=== PATIENT | female | born 1975 | race Caucasian/White ===

== ENCOUNTER 2021-09-19 06:01 | Day surgery (SDC) | payer SELFPAY ==
[2021-09-12 13:06] VITALS: BMI 33.8
[2021-09-19] MEDS ORDERED: MIDAZOLAM HCL 2 MG/2 ML SINGLE DOSE VIAL ONE ×2 (07:24→07:59)
[2021-09-19] MEDS ORDERED: ROCURONIUM BROMIDE 50 MG/5 ML SYRINGE ONE ×3 (07:24→11:00)
[2021-09-19] MEDS ORDERED: fentaNYL CITRATE 250 MCG/5 ML VIAL ONE (07:24)
[2021-09-19] MEDS ORDERED: PROPOFOL 20 ML ONE ×2 (07:24→08:00)
[2021-09-19] MEDS ORDERED: BUPIVACAINE HCL/PF 0.25% (2.5MG/ML) 10 ML VIAL ONE (07:24)
[2021-09-19] MEDS ORDERED: EPINEPHrine 1:1,000 1,000 MCG/ML ML ONE (07:25)
[2021-09-19] MEDS ORDERED: DEXMEDETOMIDINE HCL 200 MCG/2 ML IVPB ONE ×2 (07:30→07:31)
[2021-09-19] MEDS ORDERED: BUPIVACAINE LIPOSOME/PF (EXPAREL) 266 MG/20 ML VIAL ONE (07:37)
[2021-09-19] MEDS ORDERED: HEPARIN NA (PORCINE) 5,000 UNITS/ML 1ML VIAL ONE (07:59)
[2021-09-19] MEDS ORDERED: KETAMINE HCL 200 MG/20 ML VIAL ONE (08:02)
[2021-09-19] MEDS ORDERED: ONDANSETRON 4 MG/2 ML VIAL ONE (08:13)
[2021-09-19] MEDS ORDERED: DEXAMETHASONE SOD PHOSPHATE 4 MG/1 ML VIAL ONE (08:13)
[2021-09-19] MEDS ORDERED: BUPIVACAINE HCL/PF 0.25% (2.5MG/ML) 10 ML VIAL STI ONE (08:36)
[2021-09-19] MEDS ORDERED: BUPIVACAINE LIPOSOME/PF (EXPAREL) 266 MG/20 ML VIAL NR ONE (08:36)
[2021-09-19] MEDS ORDERED: HYDROmorphone HCL/PF 1 MG/ML VIAL ONE (09:21)
[2021-09-19] MEDS ORDERED: NEOSTIGMINE METHYLSULFATE 0.5 MG/1 ML - 10 ML MDV ONE (11:25)
[2021-09-19] MEDS ORDERED: BACITRACIN 15 GM TUBE TOPICAL OINTMENT ONE (12:06)
[2021-09-19] MEDS ORDERED: ONDANSETRON 4 MG/2 ML VIAL IVPB PRN (12:27)
[2021-09-19] MEDS ORDERED: morphine SULFATE 4 MG/ML VIAL IVPUSH PRN (12:27)
[2021-09-19] MEDS ORDERED: PROMETHAZINE HCL 25 MG/1 ML VIAL IVPUSH PRN (12:33)
[2021-09-19] MEDS ORDERED: ACETAMINOPHEN 1000 MG/100 ML BAG IVPB PRN (12:33)
[2021-09-19] MEDS ORDERED: ceFAZolin SODIUM 1 GM VIAL ONE (17:23)
[2021-09-19] MEDS ORDERED: DEXTROSE 5%-WATER - 50 ML IVPB ONE (17:24)
[2021-09-19] MEDS: CEFAZOLIN 1 GM in DEXTROSE 5%-WATER - 50 ML IVPB SCH (17:33)
[2021-09-19] MEDS: oxyCODONE HCL 5 MG TABLET PO PRN ×2 (17:33→22:32)
[2021-09-19] MEDS: LACTATED RINGERS SOLUTION 1,000 ML IV SCH (17:34)
[2021-09-19] MEDS: PANTOPRAZOLE 40 MG TABLET PO SCH (21:36)
[2021-09-20] MEDS: CEFAZOLIN 1 GM in DEXTROSE 5%-WATER - 50 ML IVPB SCH ×2 (02:33→09:17)
[2021-09-20] MEDS ORDERED: ceFAZolin SODIUM 1 GM VIAL ONE ×2 (03:23→09:08)
[2021-09-20] MEDS ORDERED: DEXTROSE 5%-WATER - 50 ML IVPB ONE ×2 (03:23→09:08)
[2021-09-20] MEDS: oxyCODONE HCL 5 MG TABLET PO PRN ×4 (03:44→15:42)
[2021-09-20] MEDS ORDERED: HEPARIN NA (PORCINE) 5,000 UNITS/ML 1ML VIAL SQ SCH (08:00)
[2021-09-20] MEDS: PANTOPRAZOLE 40 MG TABLET PO SCH (09:17)
[2021-09-20] MEDS: LACTATED RINGERS SOLUTION 1,000 ML IV SCH (13:30)
[2021-09-20 14:02] VITALS: BP 108/77; PULSE 83; TEMP 98.1
== END 2021-09-20 17:53 | disposition home or self-care (01) ==
LOC: FASUSAT 06:01 → FM/S 13:41 → FASUSAT 09-20 17:53
PROVIDERS: ATTEND Plastic Surgery
PROC: 0J063ZZ Alteration of Chest Subcutaneous Tissue and Fascia, Percutaneous Approach (ICD-10-PCS; 2021-09-19)
PROC: 0J080ZZ Alteration of Abdomen Subcutaneous Tissue and Fascia, Open Approach (ICD-10-PCS; principal; 2021-09-19 07:30)
PROC: 0J083ZZ Alteration of Abdomen Subcutaneous Tissue and Fascia, Percutaneous Approach (ICD-10-PCS; 2021-09-19 07:30)
DX: M95.8 Other specified acquired deformities of musculoskeletal system (principal)
CPT/HCPCS: 81025; 94760; J1644